=== PATIENT | female | born 2005 | race Caucasian/White ===

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

== ENCOUNTER 2023-08-12 13:05 | Outpatient (REF) | payer OTHER, SELFPAY ==
[2023-08-12 14:04] LABS: Hepatitis B Surface AB < 3.5 (11.5-1000)
[2023-08-12 14:05] LABS: Rubella IgG 81.1 IU/mL (0.0-10.0)
[2023-08-14 14:45] LABS: Quantiferon Mitogen 6.72 IU/mL; Quantiferon Nil 0.01 IU/mL; Quantiferon TB Gold NEGATIVE (NEGATIVE)
== END 2023-08-12 13:06 | disposition home or self-care (01) ==
LOC: LAB 13:05
PROVIDERS: PCP Family Medicine
DX: Z01.89 Encounter for other specified special examinations (principal)
CPT/HCPCS: 86480; 86706; 86735; 86762; 86765; 86787